=== PATIENT | male | born 1935 | race Caucasian/White ===

== ENCOUNTER 2017-05-05 13:05 | Inpatient (IN) | payer MEDICAID, MEDICARE ==
[~2017-05-05] VITALS: Ht 177.8 cm; Wt 78.2 kg
[~2017-05-05 13:05] MED LIST: ALEN70TA14 PO; ASPI-1093 PO; CALC-898 PO; HYDR25TA PO; OMEP20CA10 PO; OXYC-341 PO; POTA10TA14 PO; SILD100T PO; SIMV20TA6 PO
[2017-05-05] MEDS ORDERED: OXYC10 PO (13:39)
[2017-05-05] MEDS ORDERED: ASPI81 PO (13:39)
[2017-05-05] MEDS ORDERED: ACETAMINOPHEN 1000 MG/ISO-OSM 100 ML IV ONE (13:45)
[2017-05-05 14:22] LABS: BASOPHILS % (AUTO) 1.6 % (0.0-2.0); EOSINOPHILS % (AUTO) 0.1 % (1.0-6.0); HEMATOCRIT 31.6 % (41-53); HEMOGLOBIN 10.7 g/dL (13.5-17.5); LYMPHOCYTES # (AUTO) 0.6 K/uL (1.0-4.8); LYMPHOCYTES % (AUTO) 5.9 % (22.0-44.0); MEAN CORPUSCULAR HEMOGLOBIN 34.2 pg (26.0-34.0); MEAN CORPUSCULAR HGB CONC 33.8 G/dL (31.0-37.0); MEAN CORPUSCULAR VOLUME 101 fL (80-100); MONOCYTES # (AUTO) 0.5 K/uL (0.1-1.0); MONOCYTES % (AUTO) 4.5 % (2.0-9.0); NEUTROPHILS # (AUTO) 9.3 K/uL (1.8-7.7); PLATELET COUNT (AUTO) 152 K/uL (150-450); RED BLOOD CELL COUNT(AUTO) 3.12 MIL/uL (4.50-5.90); RED CELL DISTRIBUTION WIDTH 16.7 % (11.5-14.5); WHITE BLOOD COUNT (AUTO) 10.6 K/uL (4.5-11.0)
[2017-05-05 14:23] LABS: NEUTROPHILS % (AUTO) 87.9 % (40.0-70.0)
[2017-05-05 14:39] LABS: B-TYPE NATRIURETIC PEPTIDE 1220 pg/mL (0-100)
[2017-05-05 14:58] LABS: APPEARANCE,URINE CLOUDY (CLEAR); GLUCOSE, URINE (UA) NEGATIVE (NEGATIVE); KETONES,URINE 40 mg/dL (NEGATIVE); LEUKOCYTE ESTERASE ,URINE LARGE (NEGATIVE); OCCULT BLOOD,URINE MODERATE (NEGATIVE); PROTEIN,URINE TRACE (NEGATIVE)
[2017-05-05 15:00] LABS: ADD UA MICROSCOPIC YES
[2017-05-05 15:00] LABS: ALANINE AMINOTRANSFERASE 31 U/L (12-78); ALBUMIN 2.9 g/dL (3.4-5.0); ANION GAP 8 mmol/L (8-16); ASPARTATE AMINOTRANSFERASE 41 U/L (15-37); BILIRUBIN,TOTAL 1.7 mg/dL (0.1-1.0); CALCIUM, TOTAL 8.2 mg/dL (8.8-10.5); CARBON DIOXIDE 26 mmol/L (22-29); CHLORIDE 90 mmol/L (98-107); CREATINE KINASE MB 7.7 ng/mL (0-5); CREATINE KINASE, TOTAL 127 U/L (39-308); CREATININE 0.95 mg/dL (0.60-1.30); GLOMERULAR FILTR. RATE CALC > 60 mL/min (>60); TOTAL PROTEIN, SERUM 6.2 g/dL (6.4-8.2); UREA NITROGEN, BLOOD 14 mg/dL (7-18)
[2017-05-05 15:02] LABS: GLUCOSE,POINT OF CARE 135 MG/DL (70-110)
[2017-05-05 15:04] LABS: SQUAMOUS EPITHELIAL CELL,UR Few /LPF (None Seen); WBC,URINE >100 /HPF (0-5)
[2017-05-05 15:14] LABS: SODIUM SERUM 124 mmol/L (136-145)
[2017-05-05] MEDS ORDERED: CefTRIAXone 1 GM/DEXTROSE 50 ML IV ONE (15:15)
[2017-05-05] MEDS ORDERED: FUROSEMIDE 40 MG/4 ML VIAL IVP ONE (15:15)
[2017-05-05] MEDS ORDERED: ONDANSETRON HCL 4 MG/2 ML VIAL IVP PRN ×2 (15:30→22:30)
[2017-05-05] MEDS ORDERED: ACETAMINOPHEN 325 MG TABLET PO PRN ×2 (15:30→22:30)
[2017-05-05 17:41] VITALS: BP 114/63
[2017-05-05 19:41] VITALS: BP 92/64
[2017-05-05] MEDS ORDERED: HYDROCODONE/ACETAMINOPHEN 5-325 MG TABLET PO PRN (22:30)
[2017-05-05] MEDS ORDERED: MAGNESIUM HYDROXIDE SUSPENSION 30 ML UDCUP PO PRN (22:30)
[2017-05-05] MEDS ORDERED: IPRATROPIUM BROMIDE 0.5 MG/2.5 ML NEB SOLUTION NEB PRN (22:30)
[2017-05-05] MEDS ORDERED: ZOLPIDEM TARTRATE 10 MG TABLET PO PRN (22:30)
[2017-05-05 23:38] VITALS: BP 102/58
[2017-05-05] MEDS: NITROGLYCERIN 2% (1 GM=INCH) PACKET TP SCH (23:42)
[2017-05-06 04:29] VITALS: BP 115/70
[2017-05-06] MEDS: NITROGLYCERIN 2% (1 GM=INCH) PACKET TP SCH ×3 (05:39→18:03)
[2017-05-06] MEDS: MORPHINE SULFATE 4 MG/ML SYRINGE IVP PRN ×2 (05:45→14:23)
[2017-05-06 07:26] LABS: CHOL/HDL RATIO 1.4 (4.2-7.3)
[2017-05-06 07:37] VITALS: BP 121/61
[2017-05-06] MEDS: ASPIRIN 81 MG CHEWABLE TABLET PO SCH (08:44)
[2017-05-06] MEDS: DOCUSATE SODIUM 100 MG CAPSULE PO SCH ×2 (08:44→21:00)
[2017-05-06] MEDS: PANTOPRAZOLE SODIUM 40 MG/VIAL IVP SCH (08:45)
[2017-05-06] MEDS: FUROSEMIDE 40 MG/4 ML VIAL IVP SCH (08:45)
[2017-05-06] MEDS ORDERED: ASPIRIN 81 MG CHEWABLE TABLET PO SCH (09:00)
[2017-05-06 11:40] VITALS: BP 94/50
[2017-05-06 12:07] LABS: EOSINOPHILS % (AUTO) 0.6 % (1.0-6.0); HEMATOCRIT 30.2 % (41-53); LYMPHOCYTES # (AUTO) 0.5 K/uL (1.0-4.8); MEAN CORPUSCULAR HEMOGLOBIN 33.9 pg (26.0-34.0); MEAN CORPUSCULAR HGB CONC 33.1 G/dL (31.0-37.0); MEAN CORPUSCULAR VOLUME 102 fL (80-100); MONOCYTES # (AUTO) 0.6 K/uL (0.1-1.0); MONOCYTES % (AUTO) 8.2 % (2.0-9.0); NEUTROPHILS # (AUTO) 6.7 K/uL (1.8-7.7); PLATELET COUNT (AUTO) 136 K/uL (150-450); RED BLOOD CELL COUNT(AUTO) 2.95 MIL/uL (4.50-5.90); RED CELL DISTRIBUTION WIDTH 16.4 % (11.5-14.5); WHITE BLOOD COUNT (AUTO) 7.8 K/uL (4.5-11.0)
[2017-05-06 12:08] LABS: NEUTROPHILS % (AUTO) 85.2 % (40.0-70.0)
[2017-05-06 12:23] LABS: ALANINE AMINOTRANSFERASE 27 U/L (12-78); ALBUMIN 2.4 g/dL (3.4-5.0); ANION GAP 5 mmol/L (8-16); ASPARTATE AMINOTRANSFERASE 32 U/L (15-37); CALCIUM, TOTAL 7.7 mg/dL (8.8-10.5); CARBON DIOXIDE 28 mmol/L (22-29); CHLORIDE 89 mmol/L (98-107); CREATININE 0.85 mg/dL (0.60-1.30); GLOMERULAR FILTR. RATE CALC > 60 mL/min (>60); POTASSIUM 3.5 mmol/L (3.5-5.1); TOTAL PROTEIN, SERUM 5.6 g/dL (6.4-8.2); UREA NITROGEN, BLOOD 13 mg/dL (7-18)
[2017-05-06 12:29] LABS: SODIUM SERUM 122 mmol/L (136-145)
[2017-05-06 12:33] LABS: RBC MORPHOLOGY COMMENT ABNORMAL RBC MORPH
[2017-05-06] MEDS ORDERED: MAGNESIUM SULFATE 2 GM in DEXTROSE 5%-WATER 50 ML IV ONE (13:00)
[2017-05-06 14:23] VITALS: BP 108/64
[2017-05-06 15:20] VITALS: BP 111/59
[2017-05-06 19:48] VITALS: BP 93/56
[2017-05-06 22:26] LABS: ANION GAP 4 mmol/L (8-16); CALCIUM, TOTAL 7.9 mg/dL (8.8-10.5); CARBON DIOXIDE 28 mmol/L (22-29); CHLORIDE 90 mmol/L (98-107); CREATININE 0.65 mg/dL (0.60-1.30); GLOMERULAR FILTR. RATE CALC > 60 mL/min (>60); UREA NITROGEN, BLOOD 14 mg/dL (7-18)
[2017-05-06 22:30] LABS: SODIUM SERUM 122 mmol/L (136-145)
[2017-05-07] VITALS (8 sets, daily range): BP systolic 97–124; BP diastolic 58–75
[2017-05-07] MEDS: NITROGLYCERIN 2% (1 GM=INCH) PACKET TP SCH ×5 (00:04→23:56)
[2017-05-07 06:17] LABS: BASOPHILS # (AUTO) 0.01 K/uL (0.00-0.20); BASOPHILS % (AUTO) 0.2 % (0.0-2.0); EOSINOPHILS # (AUTO) 0.03 K/uL (0.00-0.70); HEMATOCRIT 30.3 % (41-53); HEMOGLOBIN 10.2 g/dL (13.5-17.5); LYMPHOCYTES # (AUTO) 0.8 K/uL (1.0-4.8); LYMPHOCYTES % (AUTO) 10.2 % (22.0-44.0); MEAN CORPUSCULAR HEMOGLOBIN 34.4 pg (26.0-34.0); MEAN CORPUSCULAR HGB CONC 33.6 G/dL (31.0-37.0); MEAN CORPUSCULAR VOLUME 103 fL (80-100); MONOCYTES # (AUTO) 0.6 K/uL (0.1-1.0); MONOCYTES % (AUTO) 8.7 % (2.0-9.0); NEUTROPHILS % (AUTO) 80.6 % (40.0-70.0); PLATELET COUNT (AUTO) 148 K/uL (150-450); RED BLOOD CELL COUNT(AUTO) 2.96 MIL/uL (4.50-5.90); RED CELL DISTRIBUTION WIDTH 16.5 % (11.5-14.5); WHITE BLOOD COUNT (AUTO) 7.4 K/uL (4.5-11.0)
[2017-05-07 06:36] LABS: ALANINE AMINOTRANSFERASE 29 U/L (12-78); ALBUMIN 2.6 g/dL (3.4-5.0); ANION GAP 4 mmol/L (8-16); ASPARTATE AMINOTRANSFERASE 34 U/L (15-37); BILIRUBIN,TOTAL 1.1 mg/dL (0.1-1.0); CALCIUM, TOTAL 8.1 mg/dL (8.8-10.5); CARBON DIOXIDE 29 mmol/L (22-29); CHLORIDE 89 mmol/L (98-107); CREATININE 0.64 mg/dL (0.60-1.30); GLOMERULAR FILTR. RATE CALC > 60 mL/min (>60); TOTAL PROTEIN, SERUM 5.8 g/dL (6.4-8.2); UREA NITROGEN, BLOOD 12 mg/dL (7-18)
[2017-05-07 06:59] LABS: SODIUM SERUM 122 mmol/L (136-145)
[2017-05-07] MEDS: FUROSEMIDE 40 MG/4 ML VIAL IVP SCH (08:05)
[2017-05-07] MEDS: PANTOPRAZOLE SODIUM 40 MG/VIAL IVP SCH (08:06)
[2017-05-07] MEDS: ASPIRIN 81 MG CHEWABLE TABLET PO SCH (08:07)
[2017-05-07] MEDS: MULTIVITAMINS WITH MINERALS, THERAPEUTIC TABLET PO SCH (08:07)
[2017-05-07] MEDS: DOCUSATE SODIUM 100 MG CAPSULE PO SCH ×2 (08:07→20:25)
[2017-05-07 08:36] LABS: RBC MORPHOLOGY COMMENT ABNORMAL RBC MORPH
[2017-05-07] MEDS ORDERED: TOLVAPTAN 15 MG TABLET PO ONE (09:15)
[2017-05-08 04:43] VITALS: BP 121/70
[2017-05-08] MEDS: NITROGLYCERIN 2% (1 GM=INCH) PACKET TP SCH ×3 (05:37→18:00)
[2017-05-08 07:09] LABS: BASOPHILS # (AUTO) 0.01 K/uL (0.00-0.20); BASOPHILS % (AUTO) 0.2 % (0.0-2.0); EOSINOPHILS # (AUTO) 0.05 K/uL (0.00-0.70); EOSINOPHILS % (AUTO) 0.83 % (1.0-6.0); HEMATOCRIT 31.7 % (41-53); HEMOGLOBIN 10.5 g/dL (13.5-17.5); LYMPHOCYTES # (AUTO) 0.8 K/uL (1.0-4.8); MEAN CORPUSCULAR HEMOGLOBIN 33.9 pg (26.0-34.0); MEAN CORPUSCULAR HGB CONC 33.1 G/dL (31.0-37.0); MEAN CORPUSCULAR VOLUME 102 fL (80-100); MONOCYTES # (AUTO) 0.7 K/uL (0.1-1.0); MONOCYTES % (AUTO) 10.9 % (2.0-9.0); NEUTROPHILS # (AUTO) 4.7 K/uL (1.8-7.7); NEUTROPHILS % (AUTO) 75.1 % (40.0-70.0); PLATELET COUNT (AUTO) 157 K/uL (150-450); RED CELL DISTRIBUTION WIDTH 16.9 % (11.5-14.5); WHITE BLOOD COUNT (AUTO) 6.3 K/uL (4.5-11.0)
[2017-05-08 07:13] LABS: RBC MORPHOLOGY COMMENT ABNORMAL RBC MORPH
[2017-05-08 07:28] LABS: ALANINE AMINOTRANSFERASE 26 U/L (12-78); ALBUMIN 2.5 g/dL (3.4-5.0); ANION GAP 4 mmol/L (8-16); ASPARTATE AMINOTRANSFERASE 29 U/L (15-37); BILIRUBIN,TOTAL 0.8 mg/dL (0.1-1.0); CALCIUM, TOTAL 8.2 mg/dL (8.8-10.5); CARBON DIOXIDE 33 mmol/L (22-29); CHLORIDE 95 mmol/L (98-107); CREATININE 0.59 mg/dL (0.60-1.30); GLOMERULAR FILTR. RATE CALC > 60 mL/min (>60); POTASSIUM 3.8 mmol/L (3.5-5.1); SODIUM SERUM 132 mmol/L (136-145); TOTAL PROTEIN, SERUM 5.8 g/dL (6.4-8.2); UREA NITROGEN, BLOOD 9 mg/dL (7-18)
[2017-05-08 07:44] VITALS: BP 123/64
[2017-05-08] MEDS: DOCUSATE SODIUM 100 MG CAPSULE PO SCH (08:29)
[2017-05-08] MEDS: MULTIVITAMINS WITH MINERALS, THERAPEUTIC TABLET PO SCH (08:29)
[2017-05-08] MEDS: PANTOPRAZOLE SODIUM 40 MG/VIAL IVP SCH (08:29)
[2017-05-08] MEDS: FUROSEMIDE 40 MG/4 ML VIAL IVP SCH (08:29)
[2017-05-08] MEDS: ASPIRIN 81 MG CHEWABLE TABLET PO SCH (08:29)
[2017-05-08] MEDS ORDERED: NYSTATIN 15 GM POWDER BOTTLE TP SCH (09:00)
[2017-05-08] MEDS ORDERED: TOLVAPTAN 15 MG TABLET PO ONE (09:45)
[2017-05-08 11:20] VITALS: BP 125/67
[2017-05-08] MEDS ORDERED: VITAMINS A & D 60 GM OINTMENT TP SCH (11:45)
[2017-05-08 15:59] VITALS: BP 120/67
[2017-05-08] MEDS ORDERED: DSS100 PO (17:42)
[2017-05-08] MEDS ORDERED: MULT-248 PO (17:44)
[2017-05-08] MEDS ORDERED: NTP TD (17:44)
[2017-05-08] MEDS ORDERED: PANT40TA25 PO (17:45)
[2017-05-08] MEDS ORDERED: NYST15PO3 TP (17:45)
[2017-05-08] MEDS ORDERED: VITA113.3 TD (17:46)
[2017-05-08] MEDS ORDERED: ACET-2902 PO (17:48)
[2017-05-08] MEDS ORDERED: MOM30 PO (17:48)
[2017-05-08] MEDS ORDERED: ZOLP10 PO (17:49)
[2017-05-08] MEDS ORDERED: KCL10IV PO (17:50)
[2017-05-08] MEDS ORDERED: FURO40 PO (17:56)
[2017-05-09 13:22] LABS: CREATININE, URINE (mALB) 5.4 mg/dL (Not Estab.)
== END 2017-05-08 19:16 | DRG 291 ==
LOC: EMS 13:06 → 5S 15:43
PROVIDERS: ADMIT Hospitalist; ATTEND Hospitalist
DX: I11.0 Hypertensive heart disease with heart failure (principal); E43 Unspecified severe protein-calorie malnutrition; E87.1 Hypo-osmolality and hyponatremia; N39.0 Urinary tract infection, site not specified; E78.00 Pure hypercholesterolemia, unspecified; K21.9 Gastro-esophageal reflux disease without esophagitis; R29.6 Repeated falls; M47.9 Spondylosis, unspecified; R26.9 Unspecified abnormalities of gait and mobility; Z96.643 Presence of artificial hip joint, bilateral; I50.21 Acute systolic (congestive) heart failure; E78.5 Hyperlipidemia, unspecified; I35.0 Nonrheumatic aortic (valve) stenosis; Z96.653 Presence of artificial knee joint, bilateral; D64.9 Anemia, unspecified; M16.0 Bilateral primary osteoarthritis of hip; Z88.0 Allergy status to penicillin; Z79.82 Long term (current) use of aspirin; Z84.89 Family history of other specified conditions; Z68.24 Body mass index [BMI] 24.0-24.9, adult; I50.23 Acute on chronic systolic (congestive) heart failure
CPT/HCPCS: 51701; 76770; 82043; 82570; 82962; 83935; 84133; 84156; 84295; 84300; 84540; 87086; 93005; 93306; 96365; 96367; 96375; 99285; C9113; J0131; J0696; J1940; J2270; J3475; J7060